=== PATIENT | female | born 1980 | race Caucasian/White ===

== ENCOUNTER 2018-04-02 05:00 | Inpatient (IN) ==
[2018-04-02] MEDS ORDERED: Insulin Human-R 100 UNIT/100ML 100 UNIT/100 ML BAG IV.CONT ONE (05:43)
[2018-04-02] MEDS ORDERED: Dextrose 50% in Water 50 ML Vial IV.PUSH PRN ×2 (05:43→19:17)
[2018-04-02 05:57] LABS: VBG Blood Gas Oxygen Content 16.2 Vol % (9.0-17.0); VBG PCO2 15 mmHG (44-48); VBG PH 6.98 (7.360-7.400); VBG PO2 55 mmHG (35-40)
[2018-04-02] MEDS: Sod Chloride 0.9% Inj 1,000 ML IV.SIG SCH ×4 (05:59→07:01)
--- NOTE | 2018-04-02 06:07 | ED ---
HPI General Chief complaint: Shortness of Breath/Dyspnea Stated complaint: sob Time Seen by Provider: 04/02/18 05:27 Source: family and EMS (Mother) Mode of arrival: ambulatory Limitations: altered mental status History of Present Illness HPI narrative: 37-year-old female came to the emergency room brought by the family with history of respiratory distress. Patient was breathing at 40 breaths/min. Mother says that she has been losing a lot of weight over past few days. She started becoming short of breath for past 2 days. Family wanted to bring her to the hospital yesterday but patient refused. Today she appears to be lethargic. She has been nauseous but no vomiting. A bedside blood glucose read more than 600. Patient does not have history of diabetes. 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 Patient was tachycardic upon arrival. Related Data Home Medications Medication Instructions Recorded Confirmed No Known Home Medications 04/02/18 04/02/18 Allergies Allergy/AdvReac Type Severity Reaction Status Date / Time codeine Allergy Intermediate HIVES Verified 04/02/18 05:03 Review of Systems ROS: all other systems reviewed are negative [facility] Medical History Medical History Patient denies medical problems (Acute) Surgical History Surgical History No history of previous surgery (Acute) Social History Social History Substance History: Past History Smoking Status: Current every day smoker Tobacco Type: Cigarettes How Often Do You Have a Drink Containing Alcohol: Never Recent Travel in [facility] within the Last 8 Weeks: No Recent Out of Country Travel within the Last 8 Weeks: No Exam Narrative Exam Narrative: GENERAL: Altered mental status, lethargic, significant distress , restless SKIN: Focused skin assessment warm/dry. HEAD: Atraumatic. Normocephalic. EYES: Pupils equal and round. No scleral icterus. No injection or drainage. ENT: No nasal bleeding or discharge. Dry mucous membrane. Coated tongue. NECK: Trachea midline. No JVD. CARDIOVASCULAR: Regular rate and rhythm. Tachycardia. No murmur appreciated. RESPIRATORY: Hyperventilation, accessory muscles use for respiration. Clear to auscultation. Breath sounds equal bilaterally. GASTROINTESTINAL: Abdomen soft, non-tender, nondistended. Hepatic and splenic margins not palpable. MUSCULOSKELETAL: No obvious deformities. No clubbing. No cyanosis. No edema. NEUROLOGICAL: GCS of 13. No obvious cranial nerve deficits. Motor grossly within normal limits. Psych: Out of proportion anxiety, restless Course Initial Documented Vital Signs Temperature 97.4 F L 04/02/18 05:03 Pulse Rate 142 H 04/02/18 05:03 Respiratory Rate 17 04/02/18 05:03 Blood Pressure 132/91 H 04/02/18 05:03 Pulse Oximetry 100 04/02/18 05:03 Last Documented Vital Signs Temperature 97.4 F L 04/02/18 05:03 Pulse Rate 135 H 04/02/18 06:00 Respiratory Rate 36 H 04/02/18 06:00 Blood Pressure 145/90 H 04/02/18 06:00 Pulse Oximetry 98 04/02/18 06:00 Critical Care Time Critical Care Time: Yes Total Critical Care Time: 45 Attestation: Aggregate critical care time was 45 minutes. Time to perform other separately billable procedures was not included in the critical care time. My time did not include minutes spent treating any other patients simultaneously or on activities that did not directly contribute to the patient's treatment. The services I provided to this patient were to treat and/or prevent clinically significant deterioration that could result in: DKA, severe acidosis, altered mental status I provided critical care services requiring my management, as noted below: Chart data review, documentation time, medication orders and management, vital sign assessments/reviewing monitor data, ordering and reviewing lab tests, ordering and interpreting/reviewing x-rays and diagnostic studies, care of the patient and discussion of the patient with the admitting physicians. Medical Decision Making MDM Narrative Medical decision making narrative: 6:05 AM patient was given 10 units of insulin IV and 2 L of IV fluid wide open over an hour. Insulin drip has been ordered. I reviewed the VBG which shows significant metabolic acidosis with a bicarb of 3 and pH of 6.95. Awaiting for the rest of the blood test result. I discussed these test results with the parents. I put a call out for the senior counsel commercial. Awaiting for the senior counsel commercial to call back. Medical Screen Exam Complete: Yes Emergency Medical Condition: Yes Lab Data Result diagrams: 04/02/18 05:45 04/02/18 05:45 Lab Results 04/02/18 04/02/18 04/02/18 Range/Units 05:39 05:46 06:07 Puncture Site Peripheral line Patient Temperature 98.6 VBG pH 6.98 L* (7.360-7.400) VBG pCO2 15 L* (44-48) mmHG VBG pO2 55 H (35-40) mmHG VBG HCO3 3 L* (22-26) mmol/L VBG O2 Saturation 76 (70-76) % VBG O2 Content 16.2 (9.0-17.0) Vol % VBG Base Excess -26.0 L (-2-2) mmol/L VBG Carboxyhemoglobin 0.9 (0-4) % VBG Methemoglobin 1.0 (0-2) % Hemoglobin 15.2 (12.0-16.0) G/DL Inspired O2 21 % Critical Value Yes POC Glucose Greater than 600 H* Greater than 600 H* (68-110) mg/dl ECG Data Attestation: I personally reviewed and interpreted this ECG as follows: Interpretation: Twelve-lead EKG was reviewed by me. Normal sinus rhythm, normal axis, tachycardia, motion artifact. Heart rate of 142 bpm. Discharge Plan Physicians Team ED Provider: Kathryn Coley Rxs /Orders / Referrals /Forms Prescriptions: No Action No Known Home Medications RF: 0 Status ED Status: With Doctor
[2018-04-02 06:16] LABS: Baso % (Auto) 0.3 % (0.0-2.0); Eos % (Auto) 0.1 % (0.0-4.0); Hemoglobin 16.5 gm/dL (11.6-15.3); Lymph % (Auto) 15.5 % (9.0-44.0); Mean Corpuscular Volume 91.5 fL (80.0-100.0); Mean Platelet Volume 9.1 fL (7.0-11.0); Mono # (Auto) 0.8 th/mm3 (0.0-0.9); Neut # (Auto) 9.9 th/mm3 (1.8-7.7); Neut % (Auto) 78.1 % (16.0-70.0); Platelet Count 456 th/mm3 (150-450); Red Blood Count 5.91 mil/mm3 (4.00-5.30); White Blood Count 12.6 th/mm3 (4.0-11.0)
[2018-04-02] MEDS ORDERED: Potassium Chloride Inj 20 MEQ/10 ML Vial IV.SIG STA (06:18)
[2018-04-02] MEDS ORDERED: Potassium Chlor 40 mEq Premix 40 MEQ/100 ML PIGGYBACK IV.SIG PRN ×2 (06:19)
[2018-04-02] MEDS ORDERED: Potassium Chlor 20 mEq Premix 20 MEQ/100 ML PIGGYBACK IV.SIG PRN ×4 (06:19)
[2018-04-02] MEDS ORDERED: Sodium Phosphate Inj 15 MMOL in Sodium Chlor 0.9% Inj 100 ML IV.SIG PRN (06:19)
[2018-04-02 06:25] LABS: Mean Corpuscular HGB Conc 30.6 % (32.0-36.0)
[2018-04-02] MEDS ORDERED: Sod Chloride 0.9% Inj 1,000 ML IV.CONT SCH (06:30)
[2018-04-02] MEDS ORDERED: Potassium Chlor 10 mEq Premix 10 MEQ/100 ML PIGGYBACK IV.SIG ONE (06:31)
--- NOTE | 2018-04-02 06:42 | XR ---
EXAM DATE: 04/02/2018 6:35 AM EST AGE/SEX: 37 years / Female INDICATIONS: Shortness of breath, nausea. CLINICAL DATA: This is the patient's initial encounter. Patient reports that signs and symptoms have been present for 2 days and indicates a pain score of 8/10. MEDICAL/SURGICAL HISTORY: . Smoker. None. COMPARISON: POI, XR CHEST PA AND LAT, 02/19/2015. . FINDINGS: A single AP view of the chest demonstrates the lungs to be symmetrically aerated without evidence of mass, infiltrate or effusion. The cardiomediastinal contours are unremarkable. Osseous structures a re intact. CONCLUSION: No acute cardiopulmonary disease. Electronically signed by: Junior Rosales MD 04/02/2018 6:40 AM EST
--- NOTE | 2018-04-02 06:44 | P.HPCC ---
History of Present Illness Service: Critical care medicine Primary Care Physician: UNKNOWN Chief Complaint: abdominal pain History of Present Illness: 37yF with history of prior opiate abuse and strong family history of insulin- dependent diabetes presents with 2 weeks of worsening abdominal pain, polyuria, polydipsia. per her and her family, her father of DKA in his 40s and her mother had insulin dependent diabetes. in the ER, she was found to have a pH < 7 , undetectably low bicarb, severe dehydration, blood glucose > 700. She was started on the DKA protocol, insulin infusion, aggressive ivf hydration. I was called and immediately came to the bedside to evaluate the patient. she was quite somnolent and altered and complained of abdominal pain. a full history and ROS is unobtainable to the critical nature of her condition and her altered mental status. Review of Systems unobtainable due to mental condition PMFSH - History History Provided By: Patient, Family Member - Medical History Medical History: Medical History (Last Reviewed 04/02/18 @ 20:57 by Bartolome Oropeza MD) Patient denies medical problems - Surgical History Surgical History: Surgical History (Last Reviewed 04/02/18 @ 20:57 by Bartolome Oropeza MD) No history of previous surgery - Family History Family History: Family History (Last Updated 04/02/18 @ 20:57 by Bartolome Oropeza MD) Other Diabetes - Social History I have reviewed the patient's Social History: Yes - Tobacco History Tobacco Use In Past 30 Days: Yes Smoking Status: Current every day smoker Tobacco Type: Cigarettes - Alcohol History How Often Do You Have a Drink Containing Alcohol: Never - Substance Use History Substance History: Past History - Travel History Recent Travel in the [place] Within the Last 8 Weeks: No Recent Travel Out of the Country Within the Last 8 Weeks: No - Immunization History Tetanus Immunization: >5 Years Medications and Allergies Active Medications: Active Medications Acetaminophen (Tylenol) 650 mg PO Q6H PRN PRN Reason: TEMPERATURE > 101 F Albuterol (Duoneb Neb (Prn)) 1 ampul NEB Q2HR NEB PRN PRN Reason: WHEEZING Chlorhexidine Gluconate (Chlorhexidine 2% Cloth) 3 pack TOPICAL DAILY@0400 DUSTIN Stop: 04/08/18 03:59 Chlorhexidine Gluconate (Chlorhexidine 2% Cloth) 3 pack TOPICAL DAILY@0400 PRN PRN Reason: Extra cloth needed Stop: 04/08/18 03:59 Dextrose (D50w Vial) 50 ml IV.PUSH UNSCH PRN PRN Reason: PER HYPOGLYCEMIA PROTOCOL Famotidine (Pepcid Pf Inj) 20 mg IV.PUSH Q12HR DUSTIN Sodium Chloride (Ns Inj) 1,000 mls @ 2,000 mls/hr IV.SIG Q30M DUSTIN Stop: 04/02/18 07:14 Last Admin: 04/02/18 06:31 Dose: 2,000 mls/hr Dextrose/Sodium Chloride (D5w/Normal Saline Inj) 1,000 mls @ 200 mls/hr IV.CONT .Q5H DUSTIN Sodium Chloride (Ns Inj) 1,000 mls @ 250 mls/hr IV.CONT .Q4H DUSTIN Potassium Chloride (Kcl 40 Meq Premix Inj) 40 meq in 100 mls @ 100 mls/hr IV.SIG Q1H PRN PRN Reason: for Initial K+ ONLY < 3.5 Potassium Chloride (Kcl 20 Meq Premix Inj) 20 meq in 100 mls @ 100 mls/hr IV.SIG Q1H PRN PRN Reason: for K+ 3.5 to 4.4 Potassium Chloride (Kcl 20 Meq Premix Inj) 20 meq in 100 mls @ 100 mls/hr IV.SIG Q1H PRN PRN Reason: for K+ 4.5 to 5 Potassium Chloride (Kcl 20 Meq Premix Inj) 20 meq in 100 mls @ 50 mls/hr IV.SIG Q2H PRN PRN Reason: for Initial K+ ONLY < 3.5 Potassium Chloride (Kcl 20 Meq Premix Inj) 20 meq in 100 mls @ 50 mls/hr IV.SIG Q2H PRN PRN Reason: for Subsequent K+ < 3.5 Potassium Chloride (Kcl 20 Meq Premix Inj) 20 meq in 100 mls @ 50 mls/hr IV.SIG Q2H PRN PRN Reason: for K+ 3.5 to 4.4 Potassium Chloride (Kcl 20 Meq Premix Inj) 20 meq in 100 mls @ 50 mls/hr IV.SIG Q2H PRN PRN Reason: for K+ 4.5 to 5 Sodium Phosphate 15 mmol/ (Sodium Chloride) 105 mls @ 25 mls/hr IV.SIG UNSCH PRN PRN Reason: for Phosphate Level < 1.0 Potassium Chloride (Kcl 40 Meq Premix Inj) 40 meq in 100 mls @ 50 mls/hr IV.SIG Q2H PRN PRN Reason: for Subsequent K+ < 3.5 Potassium Chloride (Kcl 10 Meq Premix Inj) 10 meq in 100 mls @ 100 mls/hr IV.SIG STAT ONE Stop: 04/02/18 07:30 Ondansetron HCl (Zofran Inj) 4 mg IV.PUSH Q6H PRN PRN Reason: NAUSEA OR VOMITING Sodium Bicarbonate (Sodium Bicarbonate 8.4% Inj) 50 meq IV.PUSH UNSCH PRN PRN Reason: for pH 6.9 to 7.0 Sodium Bicarbonate (Sodium Bicarbonate 8.4% Inj) 100 meq IV.PUSH UNSCH PRN PRN Reason: for pH less than 6.9 Last Admin: 04/02/18 06:41 Dose: 100 meq Sodium Chloride (Ns Flush) 2 ml IV.FLUSH PRN PRN PRN Reason: FLUSH AFTER USING IV ACCESS Sodium Chloride (Ns Flush) 2 ml IV.FLUSH UNSCH PRN PRN Reason: FLUSH AFTER USING IV ACCESS Allergies Allergy/AdvReac Type Severity Reaction Status Date / Time codeine Allergy Intermediate HIVES Verified 04/02/18 05:03 Home Medications Medication Instructions Recorded Confirmed Type No Known Home Medications 04/02/18 04/02/18 History Results - Labs CBC & Chem 7: 04/02/18 05:45 04/02/18 17:43 Labs: Short CBC 04/02/18 Range/Units 05:45 WBC 12.6 H (4.0-11.0) th/mm3 Hgb 16.5 H (11.6-15.3) gm/dL Hct 54.0 H (35.0-46.0) % Plt Count 456 H (150-450) th/mm3 - Imaging Impressions Chest X-Ray 04/02/18 05:43 CONCLUSION: No acute cardiopulmonary disease. Exam Vital signs: Vital Signs 04/02/18 05:03 04/02/18 06:00 Temperature 36.3 C L Pulse Rate 142 H 135 H Respiratory Rate 17 36 H Blood Pressure 132/91 H 145/90 H Pulse Oximetry 100 98 Intake & Output 04/01/18 04/01/18 04/02/18 06:59 18:59 06:59 Weight 54.431 kg Narrative: gen: young female in extremis, obtunded, writhing in pain in bed. heent: nc. at. perrl. mucous membranes dry. neck: no jvd. trachea midline chest: equal chest rise. room air. kussmaul respirations. tachypneic and in distress. cv: tachycardic rate, regular rhythm. sinus. abd: soft, tender to palpation diffusely. no guarding or rebound. extr: no edema. poor skin turgor. neuro: RASS -3. moves all extremities. weakly follows commands. Septic Shock Reassessment Septic shock perfusion: reassessment completed Caprini VTE Risk Assessment Caprini VTE Risk Assessment: Moderate/High Risk (score >= 2) Caprini Risk Assessment Model: Point Value = 1 Point Value = 2 Point Value = 3 Point Value = 5 Age 41-60 Minor surgery BMI > 25 kg/m2 Swollen legs Varicose veins or History of unexplained or recurrent spontaneous Oral contraceptives or hormone replacement Sepsis (< 1 month) Serious lung disease, including pneumonia (< 1 month) Abnormal pulmonary function Acute myocardial infarction Congestive heart failure (< 1 month) History of inflammatory bowel disease Medical patient at bed rest Age 61-74 Arthroscopic surgery Major open surgery (> 45 min) Laparoscopic surgery (> 45 min) Malignancy Confined to bed (> 72 hours) Immobilizing plaster cast Central venous access Age >= 75 History of VTE Family history of VTE Factor V Leiden Prothrombin [id number] Lupus anticoagulant Anticardiolipin antibodies Elevated serum homocysteine Heparin-induced thrombocytopenia Other congenital or acquired thrombophilia Stroke (< 1 month) Elective arthroplasty Hip, pelvis, or leg fracture Acute spinal cord injury (< 1 month) Prophylaxis Regimen: Total Risk Factor Score Risk Level Prophylaxis Regimen 0-1 Low Early ambulation 2 Moderate Order ONE of the following: *Sequential Compression Device (SCD) *Heparin 5000 units SQ BID 3-4 Higher Order ONE of the following medications: *Heparin 5000 units SQ TID *Enoxaparin/Lovenox 40 mg SQ daily (WT < 150 kg, CrCl > 30 mL/min) *Enoxaparin/Lovenox 30 mg SQ daily (WT < 150 kg, CrCl > 10-29 mL/min) *Enoxaparin/Lovenox 30 mg SQ BID (WT < 150 kg, CrCl > 30 mL/min) AND/OR *Sequential Compression Device (SCD) 5 or more Highest Order ONE of the following medications: *Heparin 5000 units SQ TID (Preferred with Epidurals) *Enoxaparin/Lovenox 40 mg SQ daily (WT < 150 kg, CrCl > 30 mL/min) *Enoxaparin/Lovenox 30 mg SQ daily (WT < 150 kg, CrCl > 10-29 mL/min) *Enoxaparin/Lovenox 30 mg SQ BID (WT < 150 kg, CrCl > 30 mL/min) AND *Sequential Compression Device (SCD) Assessment and Plan - Assessment and Plan Plan: Assessment: 37yF with new diagnosis of diabetes and severe DKA. in extremis and clinically appears like she has been worsening for quite some time (by history possibly 2 weeks). by pH and labwork, near in extremis. very critically ill. admit to ICU for insulin, aggressive ivf, potassium replacement. Active problems: Acute metabolic encephalopathy severe dehydration Diabetic keotacidosis severe hyperglycemia new diagnosis of diabetes life-threatening hypokalemia acute severe life-threatening anion-gap metabolic acidosis severe acute kidney injury respiratory distress Plan: - admit to ICU - insulin drip - aggressive electrolyte replacement - 5L ivf boluses followed by ivf replacement @ 250cc/hr - advance diet when blood glucose < 250 mg/dL - frequent neuro checks - avoid long-acting sedatives - avoid narcotics given history of narcotic abuse (at patient's request) - restart home suboxone (home dose is 8mg tid- will start at 8mg bid) - place osborn - q1h uop - serial bmp, mg, phos Critically ill. Critical care time: 44 minutes, exclusive of separately billable procedures.
[2018-04-02 06:45] LABS: Alanine Aminotransferase 16 U/L (10-53); Albumin 4.4 g/dL (3.4-5.0); Alkaline Phosphatase 126 U/L (45-117); Anion Gap 30 meq/L (5-15); Aspartate Aminotransferase 8 U/L (15-37); Beta Hydroxybutyric Acid 12.51 mmol/L (0.00-0.39); Blood Urea Nitrogen 17 mg/dL (7-18); Calcium 8.9 mg/dL (8.5-10.1); Chloride 103 meq/L (98-107); Glomerular Filtration Rate 40 mL/min (>89); Magnesium 2.3 mg/dL (1.5-2.5); Potassium 4.1 meq/L (3.5-5.1); Sodium 138 meq/L (136-145); Total Protein 8.8 g/dL (6.4-8.2)
[2018-04-02 06:47] LABS: Glucose,Random 730 mg/dL (74-106)
[2018-04-02] MEDS ORDERED: Midazolam Inj 5 MG/ML 1 ML Vial ONE (06:55)
[2018-04-02 08:08] LABS: Calcium 6.9 mg/dL (8.5-10.1); Potassium 3.5 meq/L (3.5-5.1)
[2018-04-02 08:17] LABS: Albumin 3.4 g/dL (3.4-5.0)
[2018-04-02 08:20] LABS: Calcium-Albumin Corrected 7.4 mg/dL (8.5-10.1)
[2018-04-02 08:43] LABS: Bacteria,Urine Occasional /hpf; Bilirubin,Urine Negative (Negative); Clarity,Urine Clear (Clear); Color,Urine Straw (Yellw/Straw); Glucose,Urine (UA) 500 or Greater mg/dL (Negative); Leukocyte Esterase,Urine Negative (Negative); Mucus,Urine Few /lpf (Occasional); Nitrite,Urine Negative (Negative); Specific Gravity,Urine 1.015 (1.002-1.035); Squamous Epithelial Cell,Urine <1 /hpf (0-5)
[2018-04-02] MEDS: Famotidine PF Inj 20 MG/2 ML Vial IV.PUSH SCH ×2 (08:47→20:02)
[2018-04-02] MEDS: Insulin Regular (For Infusion) 100 UNIT in Sodium Chlor 0.9% Inj 99 ML IV.CONT PRN ×2 (08:55→18:15)
[2018-04-02] MEDS: Buprenorphine/Naloxone 8/2 MG Sublingual Tablet SL SCH ×2 (09:06→20:02)
[2018-04-02] MEDS: Potassium Chlor 20 mEq Premix 20 MEQ/100 ML PIGGYBACK IV.SIG PRN ×5 (09:12→20:26)
[2018-04-02] MEDS: Dextrose 5%/NaCl 0.9% Inj 1,000 ML IV.CONT SCH ×2 (10:38→15:50)
[2018-04-02 13:53] LABS: Anion Gap 14 meq/L (5-15); Blood Urea Nitrogen 11 mg/dL (7-18); Calcium 6.9 mg/dL (8.5-10.1); Carbon Dioxide 13.9 meq/L (21.0-32.0); Chloride 122 meq/L (98-107); Glomerular Filtration Rate Greater Than 89 mL/min (>89); Glucose,Random 203 mg/dL (74-106); Magnesium 1.5 mg/dL (1.5-2.5); Phosphorus 0.4 mg/dL (2.5-4.9); Sodium 150 meq/L (136-145)
[2018-04-02 14:02] LABS: Albumin 2.7 g/dL (3.4-5.0); Calcium-Albumin Corrected 7.9 mg/dL (8.5-10.1)
[2018-04-02 14:04] LABS: Potassium 2.9 meq/L (3.5-5.1)
[2018-04-02] MEDS ORDERED: Potassium Phosphate Inj 30 MMOL in Sodium Chlor 0.9% Inj 250 ML IV.SIG ONE (15:00)
[2018-04-02] MEDS ORDERED: Magnesium Sulfate Inj 4 GM in Sodium Chlor 0.9% Inj 92 ML IV.SIG ONE (15:00)
[2018-04-02] MEDS ORDERED: Sod Chloride 0.9% Inj 2,000 ML IV.SIG ONE (16:00)
[2018-04-02 18:39] LABS: Anion Gap 5 meq/L (5-15); Beta Hydroxybutyric Acid 0.85 mmol/L (0.00-0.39); Blood Urea Nitrogen 10 mg/dL (7-18); Carbon Dioxide 20.9 meq/L (21.0-32.0); Chloride 122 meq/L (98-107); Glomerular Filtration Rate Greater Than 89 mL/min (>89); Glucose,Random 201 mg/dL (74-106); Magnesium 2.5 mg/dL (1.5-2.5); Phosphorus 0.9 mg/dL (2.5-4.9); Sodium 148 meq/L (136-145)
[2018-04-02 18:46] LABS: Albumin 2.6 g/dL (3.4-5.0); Calcium-Albumin Corrected 8.1 mg/dL (8.5-10.1)
--- NOTE | 2018-04-02 19:59 | ECG ---
Date Performed: 04/02/2018 Time Performed: 05:24:54 PTAGE: 37 years EKG: SINUS TACHYCARDIA WITH SHORT MO INTERVAL, POSSIBLE ATRIAL FLUTTER ST DEVIATION AND MODERATE T-WAVE ABNORMALITY, CONSIDER ANTEROLATERAL ISCHEMIA ST DEVIATION AND MARKED T-WAVE ABNORMALITY, CONS IDER INFERIOR ISCHEMIA ABNORMAL ECG NO PREVIOUS TRACING DOCTOR: Kendra Brasher Interpretating Date/Time 04/02/2018 19:54:22
[2018-04-02] MEDS: Insulin Detemir Inj 1,000 UNIT/10 ML Vial SQ SCH (20:02)
[2018-04-02] MEDS: Sodium Chloride 0.45 % Inj 1,000 ML IV.CONT SCH (20:03)
[2018-04-02] MEDS: Insulin NovoLIN Regular Correctional Sugar Inj SQ SCH (20:03)
[2018-04-03] MEDS: Insulin NovoLIN Regular Correctional Sugar Inj SQ SCH ×6 (00:14→20:48)
[2018-04-03 00:45] LABS: Anion Gap 7 meq/L (5-15); Blood Urea Nitrogen 8 mg/dL (7-18); Calcium 7.2 mg/dL (8.5-10.1); Carbon Dioxide 19.7 meq/L (21.0-32.0); Chloride 118 meq/L (98-107); Glomerular Filtration Rate Greater Than 89 mL/min (>89); Glucose,Random 135 mg/dL (74-106); Phosphorus 1.5 mg/dL (2.5-4.9); Sodium 145 meq/L (136-145)
[2018-04-03 01:22] LABS: Albumin 2.6 g/dL (3.4-5.0); Calcium-Albumin Corrected 8.3 mg/dL (8.5-10.1)
[2018-04-03] MEDS ORDERED: Sodium Phosphate Inj 30 MMOL in Sodium Chlor 0.9% Inj 250 ML IV.SIG PRN ×2 (01:58→21:29)
[2018-04-03] MEDS ORDERED: Potassium Phosphate Inj 30 MMOL in Sodium Chlor 0.9% Inj 250 ML IV.SIG ONE (02:00)
[2018-04-03] MEDS: Acetaminophen 325 MG Tablet PO PRN ×2 (02:47→10:48)
[2018-04-03] MEDS ORDERED: Chlorhexidine Gluconate 2% 1 Pack (2 Cloths) TOPICAL PRN (04:00)
[2018-04-03] MEDS: Sodium Chloride 0.45 % Inj 1,000 ML IV.CONT SCH ×2 (05:45→15:35)
[2018-04-03] MEDS: Insulin Detemir Inj 1,000 UNIT/10 ML Vial SQ SCH ×2 (08:06→20:47)
[2018-04-03] MEDS: Famotidine PF Inj 20 MG/2 ML Vial IV.PUSH SCH ×2 (08:06→20:48)
--- NOTE | 2018-04-03 09:19 | P.PNIM ---
Subjective Interval history: 37yo f undiagnosed diabetic admitted with severe DKA pt seen and examined doing better, still feels achy all over, denies sob, no cp , no abd pain, no dysuria Physical Exam Vital signs: Last Vital Signs Temp 98.1 F 04/03/18 08:00 Pulse 82 04/03/18 08:00 Resp 12 04/03/18 08:00 BP 90/55 L 04/03/18 08:00 Pulse Ox 99 04/03/18 08:50 Intake & Output 04/01/18 04/02/18 04/03/18 04/04/18 06:59 06:59 06:59 06:59 Intake Total 1000 / 1000 9703.6 / 9703.6 Output Total 2875 / 2875 270 / 270 Balance 1000 / 1000 6828.6 / 6828.6 -270 / -270 Weight 63 kg 66.7 kg aaox3 nad heart s1s2 reg lungs clear no wrr abd soft nondt pos bs no mass ext no edema no calf tenderness Urinary Catheter Management Indwelling Urethral Catheter: Cath placed during this visit: yes Urethral indwelling: No Insertion date: 04/02/18 Insertion time: 07:30 Results Labs CBC & Chem 7: 04/04/18 05:35 04/04/18 05:35 Assessment and Plan Plan DKA severe - resolving DM newly diagnosed cont insulin, diet, education, insulin teaching discussed, check a1c, DEHYDRATION severe slow improvement, cont hydration, hypotoic fluids, encourage po intake free water ACUTE METABOLIC ENCEPHALOPATHY resolved HYPOKALEMIA severe, w hypophosphatemia - replace per protocol JONI due to dehydration downgrade to medsurg if stable advance diet as tolerated, Progress Note: Quality VTE Deep Vein Thrombosis/Pulmonary Embolism Present on Admission: No
[2018-04-03] MEDS: Buprenorphine/Naloxone 8/2 MG Sublingual Tablet SL SCH ×2 (10:08→20:49)
[2018-04-03] MEDS: Ibuprofen 600 MG Tablet PO PRN (13:50)
[2018-04-03 13:59] LABS: Baso # (Auto) 0.1 th/mm3 (0.0-0.2); Baso % (Auto) 0.4 % (0.0-2.0); Eos # (Auto) 0.1 th/mm3 (0.0-0.4); Eos % (Auto) 0.6 % (0.0-4.0); Hematocrit 34.8 % (35.0-46.0); Hemoglobin 12.2 gm/dL (11.6-15.3); Lymph # (Auto) 4.1 th/mm3 (1.0-4.8); Lymph % (Auto) 28.9 % (9.0-44.0); Mean Corpuscular HGB Conc 35.2 % (32.0-36.0); Mean Corpuscular Hemoglobin 28.9 pg (27.0-34.0); Mean Platelet Volume 8.3 fL (7.0-11.0); Mono # (Auto) 0.9 th/mm3 (0.0-0.9); Mono % (Auto) 6.1 % (0.0-8.0); Neut # (Auto) 9.1 th/mm3 (1.8-7.7); Platelet Count 181 th/mm3 (150-450); Red Blood Count 4.24 mil/mm3 (4.00-5.30); Red Cell Distribution Width 16.5 % (11.6-17.2); White Blood Count 14.2 th/mm3 (4.0-11.0)
[2018-04-03 14:35] LABS: Alanine Aminotransferase 15 U/L (10-53); Albumin 2.6 g/dL (3.4-5.0); Alkaline Phosphatase 69 U/L (45-117); Anion Gap 10 meq/L (5-15); Aspartate Aminotransferase 15 U/L (15-37); Beta Hydroxybutyric Acid 1.05 mmol/L (0.00-0.39); Blood Urea Nitrogen 6 mg/dL (7-18); Calcium 7.6 mg/dL (8.5-10.1); Carbon Dioxide 24.1 meq/L (21.0-32.0); Chloride 109 meq/L (98-107); Glomerular Filtration Rate Greater Than 89 mL/min (>89); Glucose,Random 176 mg/dL (74-106); Magnesium 1.8 mg/dL (1.5-2.5); Phosphorus 1.9 mg/dL (2.5-4.9); Sodium 143 meq/L (136-145); Total Protein 5.1 g/dL (6.4-8.2)
[2018-04-03 14:58] LABS: Potassium 2.8 meq/L (3.5-5.1)
[2018-04-03] MEDS ORDERED: Potassium Phosphate 500 MG Soluble Tablet PO ONE (15:30)
[2018-04-03 20:31] LABS: Potassium 3.1 meq/L (3.5-5.1)
[2018-04-03 20:32] LABS: Magnesium 1.8 mg/dL (1.5-2.5)
[2018-04-03] MEDS ORDERED: Magnesium Sulfate Inj 2 GM in Sodium Chlor 0.9% Inj 96 ML IV.SIG PRN (21:29)
[2018-04-03] MEDS ORDERED: Potassium Chlor 40 mEq Premix 40 MEQ/100 ML PIGGYBACK IV.SIG PRN ×2 (21:29)
[2018-04-03] MEDS ORDERED: Potassium Phosphate 500 MG Soluble Tablet PO PRN ×2 (21:29)
[2018-04-03] MEDS ORDERED: Magnesium Oxide 400 MG Tablet PO PRN (21:29)
[2018-04-03] MEDS ORDERED: Potassium Phosphate Inj 30 MMOL in Sodium Chlor 0.9% Inj 250 ML IV.SIG PRN (21:29)
[2018-04-03] MEDS ORDERED: Potassium Chlor 20 mEq Premix 20 MEQ/100 ML PIGGYBACK IV.SIG PRN ×2 (21:29)
[2018-04-03] MEDS ORDERED: Magnesium Sulfate Inj 4 GM in Sodium Chlor 0.9% Inj 92 ML IV.SIG PRN (21:29)
[2018-04-03] MEDS ORDERED: Potassium Chloride 25 MEQ Effervescent Tablet PO PRN (21:29)
[2018-04-03] MEDS: Chlorhexidine Gluconate 2% 1 Pack (2 Cloths) TOPICAL SCH (21:40)
[2018-04-04] MEDS: Insulin NovoLIN Regular Correctional Sugar Inj SQ SCH ×5 (00:18→12:16)
[2018-04-04] MEDS: Ibuprofen 600 MG Tablet PO PRN ×2 (05:30→12:20)
[2018-04-04 06:13] LABS: Baso % (Auto) 0.2 % (0.0-2.0); Eos # (Auto) 0.1 th/mm3 (0.0-0.4); Hematocrit 34.9 % (35.0-46.0); Hemoglobin 12.2 gm/dL (11.6-15.3); Lymph # (Auto) 3.1 th/mm3 (1.0-4.8); Lymph % (Auto) 31.9 % (9.0-44.0); Mean Corpuscular HGB Conc 34.9 % (32.0-36.0); Mean Corpuscular Hemoglobin 28.8 pg (27.0-34.0); Mean Corpuscular Volume 82.6 fL (80.0-100.0); Mono % (Auto) 10.6 % (0.0-8.0); Neut # (Auto) 5.5 th/mm3 (1.8-7.7); Neut % (Auto) 56.3 % (16.0-70.0); Platelet Count 155 th/mm3 (150-450); Red Blood Count 4.22 mil/mm3 (4.00-5.30); Red Cell Distribution Width 16.2 % (11.6-17.2); White Blood Count 9.8 th/mm3 (4.0-11.0)
[2018-04-04 06:26] LABS: Albumin 2.7 g/dL (3.4-5.0); Anion Gap 7 meq/L (5-15); Aspartate Aminotransferase 18 U/L (15-37); Blood Urea Nitrogen 8 mg/dL (7-18); Calcium 8.1 mg/dL (8.5-10.1); Carbon Dioxide 27.7 meq/L (21.0-32.0); Chloride 108 meq/L (98-107); Glomerular Filtration Rate Greater Than 89 mL/min (>89); Glucose,Random 119 mg/dL (74-106); Sodium 143 meq/L (136-145)
[2018-04-04 06:28] LABS: Alanine Aminotransferase 15 U/L (10-53); Phosphorus 2.7 mg/dL (2.5-4.9)
[2018-04-04 06:30] LABS: Alkaline Phosphatase 82 U/L (45-117); Total Protein 5.3 g/dL (6.4-8.2)
[2018-04-04] MEDS: Famotidine PF Inj 20 MG/2 ML Vial IV.PUSH SCH (08:16)
[2018-04-04] MEDS: Insulin Detemir Inj 1,000 UNIT/10 ML Vial SQ SCH (08:16)
[2018-04-04] MEDS: Sodium Chloride 0.45 % Inj 1,000 ML IV.CONT SCH (08:17)
[2018-04-04] MEDS: Chlorhexidine Gluconate 2% 1 Pack (2 Cloths) TOPICAL SCH (08:18)
[2018-04-04] MEDS: Buprenorphine/Naloxone 8/2 MG Sublingual Tablet SL SCH (08:56)
--- NOTE | 2018-04-05 20:38 | P.DS ---
DS: Providers Date of admission: 04/02/18 06:10 Primary care physician: UNKNOWN Consults: 04/02/18 09:23 HUB Only Consult Order Routine Consulting Provider: [place] [employer],Insurance 04/02/18 20:50 Consult to Hospitalist Routine Consulting Provider: Ruth Randall Reason for Consultation: DKA Notified:: Service Spoke with:: Rima Date Notified:: 04/02/18 Time Notified:: 20:54 Ordering Provider: ROXIE Anticipated date of discharge: 04/04/18 Brief History from admission: 37yF with history of prior opiate abuse and strong family history of insulin- dependent diabetes presents with 2 weeks of worsening abdominal pain, polyuria, polydipsia. per her and her family, her father of DKA in his 40s and her mother had insulin dependent diabetes. in the ER, she was found to have a pH < 7 , undetectably low bicarb, severe dehydration, blood glucose > 700. She was started on the DKA protocol, insulin infusion, aggressive ivf hydration. I was called and immediately came to the bedside to evaluate the patient. she was quite somnolent and altered and complained of abdominal pain. a full history and ROS is unobtainable to the critical nature of her condition and her altered mental status. DS: Diagnosis Discharge Diagnosis (1) DKA (diabetic ketoacidoses): Status: Acute Diagnosis: Principal (2) Newly diagnosed diabetes: Status: Acute Diagnosis: Principal (3) Dehydration: Status: Acute Diagnosis: Principal (4) Acute metabolic encephalopathy: Status: Acute Diagnosis: Principal (5) Hypokalemia: Status: Acute Diagnosis: Principal (6) Acute kidney injury: Status: Acute Diagnosis: Principal DS: Summary DKA severe - resolved Diabetes mellitus, newly diagnosed -diabetic teaching completed including insulin teaching -pt provided with diabetic starter kit -RX provided for insulin Dehydration, severe -improved s/p IV fluid hydration, encourage po intake free water Acute metabolic encephalopathy - resolved Hypokalemia, severe, w hypophosphatemia - improved JONI due to dehydration - resolved Time Spent with Patient Total time spent providing and/or coordinating discharge services: Greater than 30 minutes Status at Discharge Functional status at discharge: independent ambulation Overall status at discharge: patient is back to baseline Quality: VTE Deep Vein Thrombosis/Pulmonary Embolism Present on Admission: No Exam Narrative Exam Narrative: GENERAL: no acute distress, well developed, well nourished SKIN: Warm and dry. HEAD: Atraumatic. Normocephalic. EYES: Pupils equal and round. No scleral icterus. No injection or drainage. ENT: No nasal bleeding or discharge. Mucous membranes pink and moist. NECK: Trachea midline. No JVD. CARDIOVASCULAR: Regular rate and rhythm. RESPIRATORY: No accessory muscle use. Clear to auscultation. Breath sounds equal bilaterally. GASTROINTESTINAL: Abdomen soft, non-tender, nondistended. MUSCULOSKELETAL: Extremities without clubbing, cyanosis, or edema. No obvious deformities. NEUROLOGICAL: Awake and alert. No obvious cranial nerve deficits. Motor grossly within normal limits. Five out of 5 muscle strength in the arms and legs. Normal speech. PSYCHIATRIC: Appropriate mood and affect; insight and judgment normal. Results Impressions ITS Impressions Chest X-Ray 04/02/18 05:43 CONCLUSION: No acute cardiopulmonary disease. Discharge Plan Discharge Disposition Patient Disposition: Discharge Home Discharge Condition Condition: Stable Discharge Order Discharge Orders: Discharge Order (Routine); Ordered 04/04/18 Ordered By: Casandra Holden Discharge Details Anticipated Discharge Date: 04/04/18 Physicians Team Primary Care Provider: UNKNOWN, Attending Provider: Allen Badillo Other Providers: [facility],Insurance Rxs /Orders / Referrals /Forms Prescriptions: New insulin regular human [Novolin R Regular U-100 Insuln] 100 unit/mL Solution subcut Q4HR Qty: 10 RF: 1 buprenorphine-naloxone 8-2 mg Tablet, Sublingual 1 tab Sublingual BID Qty: 0 RF: 0 insulin detemir U-100 [Levemir U-100 Insulin] 100 unit/mL Solution 5 unit subcut Q12H Qty: 10 RF: 1 Referrals: UNKNOWN, [Primary Care Provider] - See Instructions (Please follow up with your primary care provider in 1 week. ) Discharge Instructions Patient Printed Instructions: Insulin Regular (By injection), Insulin Detemir ( By injection), Diabetic Ketoacidosis (GEN), Foot Care for People with Diabetes ( GEN), Type 2 Diabetes in Adults (GEN), Meal Planning with Diabetes Exchanges ( GEN) Additional Instructions: Your Health Problems: Goals to Promote Your Health: * To prevent worsening of your condition * To maintain your health at the optimal level Directions to Meet Your Goals: * Take your medications as prescribed * Follow your dietary instruction * Follow activity as directed * Keep your appointments as scheduled * Take your immunizations and boosters as scheduled * If your symptoms worsen call your PCP * If no PCP go to Urgent Care or Emergency Room Smoking is dangerous to your health. Avoid second hand smoke. You may reach the 24-hour crisis hotline for domestic abuse at . Status ED Status: Left Department Discharge Information Discharge Date/Time: 04/04/18 15:42
== END 2018-04-04 15:42 | disposition home or self-care (01) ==
LOC: NEPE 05:00 → HIMC 06:10 → N06 04-03 23:10
PROVIDERS: ADMIT Internal Medicine; ATTEND Internal Medicine
DX: Z88.5 Allergy status to narcotic agent; F17.210 Nicotine dependence, cigarettes, uncomplicated; Z83.3 Family history of diabetes mellitus; G93.41 Metabolic encephalopathy; N17.9 Acute kidney failure, unspecified; E86.0 Dehydration; E11.10 Type 2 diabetes mellitus with ketoacidosis without coma; R06.03 Acute respiratory distress; K14.3 Hypertrophy of tongue papillae; F41.9 Anxiety disorder, unspecified; R00.0 Tachycardia, unspecified; E87.6 Hypokalemia